=== PATIENT | female | born 1985 | race Hispanic/Latino ===

== ENCOUNTER 2020-10-24 22:53 | Emergency (ER) | payer OTHER ==
[~2020-10-24] VITALS: Ht 162.6 cm; Wt 86.2 kg
[2020-10-24] MEDS ORDERED: HYDROCODONE/APAP 10MG-325MG TAB PO ONE (23:15)
== END 2020-10-25 01:15 | disposition home or self-care (01) ==
LOC: ER 23:16
DX: M25.562 Pain in left knee (principal); W01.0XXA Fall on same level from slipping, tripping and stumbling without subsequent striking against object, initial encounter
CPT/HCPCS: 93971; 99283